=== PATIENT | female | born 1980 | race Caucasian/White ===

== ENCOUNTER 2017-06-30 06:31 | Day surgery (SDC) | payer BC ==
[2017-06-30] MEDS ORDERED: Lactated Ringers 1,000 ML IV SCH (06:45)
[2017-06-30] MEDS ORDERED: Propofol 200 MG/20 ML SDV IV ONE (08:00)
[2017-06-30] MEDS ORDERED: Ondansetron 4 MG/2 ML SDV IVPUSH ONE (08:00)
--- NOTE | 2017-06-30 08:28 | PCM.OPNOTE ---
- General Post-Op/Procedure Note Date of Surgery/Procedure: 06/30/17 Operative Procedure(s): c scope with random biopsies Findings: normal colon Pre Op Diagnosis: diarrhea crampy abd pain Post-Op Diagnosis: nl exam Anesthesia Technique: MAC Primary Surgeon: Nitin Ponce Anesthesia Provider: Tiera Carolina Pathology: random colon biopsy Complications: None Condition: Good Free Text/Narrative:: see dictation
--- NOTE | 2017-06-30 10:13 | OR ---
DATE OF OPERATION: 06/30/2017 SURGEON: Nitin Ponce MD PROCEDURE PERFORMED: Colonoscopy. PREOPERATIVE DIAGNOSIS: History of abdominal pain and cramping and diarrhea. POSTOPERATIVE DIAGNOSIS: Normal scope. INDICATIONS FOR PROCEDURE: This is a 36-year-old white female who is referred with the above-mentioned history of diarrhea and crampy abdominal pain. She was offered and accepted a colonoscopy. DESCRIPTION OF PROCEDURE: After an excellent IV sedation was administered, digital rectal exam was performed. No marked abnormality was noted. The flexible colonoscope was inserted and advanced to the cecum without difficulty. The prep was good. The following findings were noted: Ascending colon, unremarkable. Transverse colon, unremarkable. Descending colon, unremarkable. Sigmoid, unremarkable. Rectum and anus unremarkable. On withdrawing the scope, random biopsies were taken. The colon was deflated. The scope was removed. The patient tolerated the procedure well. /[id number] /MODL
[2017-06-30 10:26] VITALS: BP 127/77
== END 2017-06-30 09:35 | disposition home or self-care (01) ==
LOC: FB.SDS 06:31
PROVIDERS: ATTEND Surgery
DX: R10.9 Unspecified abdominal pain (principal); R19.7 Diarrhea, unspecified; F32.9 Major depressive disorder, single episode, unspecified; Z88.0 Allergy status to penicillin; Z88.8 Allergy status to other drugs, medicaments and biological substances; Z91.030 Bee allergy status; Z79.899 Other long term (current) drug therapy; Z98.890 Other specified postprocedural states; Z87.891 Personal history of nicotine dependence
CPT/HCPCS: 45380; 88305; J2405; J2704; J7120

== ENCOUNTER 2017-09-07 20:58 | Emergency (ER) | payer BC ==
[2017-09-07] MEDS ORDERED: hydrOXYzine HCl 25 MG Tab PO ONE (23:15)
--- NOTE | 2017-09-07 23:20 | EDM.PDOC ---
ED HPI GENERAL MEDICAL PROBLEM - General Chief Complaint: Cardiovascular Problem Stated Complaint: CHEST PAIN AND BLOOD PRESSURE Time Seen by Provider: 09/07/17 21:00 Source of Information: Reports: Patient History Limitations: Reports: No Limitations - History of Present Illness INITIAL COMMENTS - FREE TEXT/NARRATIVE: c/o multiple symptoms sensitivity of R jaw x 3w, h/o pins in her jaw 2y ago, pt thought they might be infected, saw PCP 1d ago and dx with sinusitis and begun on antibiotic, saw oral surgeon today who did a CT and told her that the pins were not infected and that her sinuses were clear, pt wants to stop the antibiotic has had soreness in her mid sternum for the past 5d that is continuous, no change with DB or movement also tingle and cold and dec'd sensation in L hand for past several days not sleeping well has been fatigued no flu vax 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, has 2 children of her own ages 13 and 7 no f/c/d, no n/v, no constipation/diarrhea w/u neg here Left Anterior Chest Pain Score (Numeric/FACES): 4 - Related Data Allergies Allergy/AdvReac Type Severity Reaction Status Date / Time Penicillins Allergy Intermediate Hives Verified 06/29/17 08:44 venom-honey bee Allergy Intermediate Anaphylactic Verified 06/29/17 08:44 [bee venom (honey bee)] Shock loratadine [From Claritin] Allergy Hives Verified 06/29/17 08:44 Home Meds: Home Meds Ketorolac [Toradol] 10 mg PO ASDIRECTED PRN 01/01/14 [History] EPINEPHrine [Epipen] 1 injection IM ASDIRECTED PRN 09/05/14 [History] Ibuprofen 600 mg PO Q6H PRN 06/29/17 [History] Zolpidem Tartrate [Ambien] 10 mg PO BEDTIME PRN 06/29/17 [History] Acetaminophen [Tylenol Extra Strength] 1,500 mg PO ASDIRECTED PRN 06/30/17 [ History] hydrOXYzine HCl [hydrOXYzine] 25 mg PO TID PRN #30 tab 09/07/17 [Rx] Past Medical History - Past Health History Medical/Surgical History: Denies Medical/Surgical History Other HEENT History: TMJ DISORDER, HAD JAW SURGERY 2016 Cardiovascular History: Reports: None, Other (See Below) Other Cardiovascular History: STATES FELT PERIODS OF PALPITATION ET WAS PUT ON MONITOR WHICH SHOWED BRADYCARDIA. NOT CURRENTLY ON MEDS, ETC. inwith tingling L hand and chest tightness Respiratory History: Reports: None Gastrointestinal History: Reports: GERD Genitourinary History: Reports: Other (See Below) Other Genitourinary History: STATES HAD ISSUE CHILD ET HAD SURGERY, HOWEVER STATES RECORDS WERE LOST. [employer] History: Reports: Other OB/BYN History: III PARA II AB I Other Musculoskeletal History: TMJ Neurological History: Reports: Migraines Other Neuro History: STATES FEW MIGRAINES SINCE SURGERY FOR TMJ Psychiatric History: Reports: Anxiety, Depression Endocrine/Metabolic History: Reports: None Hematologic History: Reports: Anemia Other Hematologic History: ANEMIA DURING Oncologic (Cancer) History: Reports: None Dermatologic History: Reports: None - Infectious Disease History Infectious Disease History: Reports: Chicken Pox, Influenza - Past Surgical History Head Surgeries/Procedures: Reports: None HEENT Surgical History: Reports: Oral Surgery, Other (See Below) Other HEENT Surgeries/Procedures: TMJ SURGERY. HAS PERMANENT RETAINER, LOWER TEETH. Cardiovascular Surgical History: Reports: None Respiratory Surgical History: Reports: None GI Surgical History: Reports: EGD Female Surgical History: Reports: Section Social & Family History - Family History Family Medical History: Noncontributory Immunologic: Reports: SLE, Other (See Below) Other Immunologic Family History: sister - Tobacco Use Smoking Status *Q: Never Smoker Years of Tobacco use: 12 Packs/Tins Daily: 0.5 Used Tobacco, but Quit: Yes Month Tobacco Last Used: 2011 Second Hand Smoke Exposure: No - Caffeine Use Caffeine Use: Reports: Coffee Caffeine Use Comment: 2-3 cups a day - Alcohol Use Days Per Week of Alcohol Use: 0 - Recreational Drug Use Recreational Drug Use: No ED ROS GENERAL - Review of Systems Review Of Systems: See Below Constitutional: Reports: No Symptoms HEENT: Reports: No Symptoms Respiratory: Reports: No Symptoms Cardiovascular: Reports: Chest Pain Endocrine: Reports: No Symptoms GI/Abdominal: Reports: No Symptoms : Reports: No Symptoms Musculoskeletal: Reports: No Symptoms Skin: Reports: No Symptoms Neurological: Reports: Headache, Weakness, Other (numbness of hand) Psychiatric: Reports: Anxiety, Other (sleep disturbance) Hematologic/Lymphatic: Reports: No Symptoms Immunologic: Reports: No Symptoms ED EXAM, GENERAL - Physical Exam Exam: See Below Exam Limited By: No Limitations General Appearance: Alert, WD/WN, Anxious Eye Exam: Bilateral Eye: Normal Inspection, PERRL Ears: Normal External Exam, Normal Canal, Hearing Grossly Normal Nose: Normal Inspection, Normal Mucosa, No Blood Throat/Mouth: Normal Inspection, Normal Lips, Normal Teeth, Normal Voice, No Airway Compromise, Other (nares 50% swell b/l) Head: Atraumatic, Normocephalic Neck: Normal Inspection, Supple, Non-Tender, Full Range of Motion Respiratory/Chest: No Respiratory Distress, Lungs Clear, Normal Breath Sounds, No Accessory Muscle Use, Chest Non-Tender Cardiovascular: Regular Rate, Rhythm, No Edema, No Gallop, No Murmur, No Rub GI/Abdominal: Normal Bowel Sounds, Soft, Non-Tender, No Organomegaly, No Distention, No Mass Back Exam: Normal Inspection, Full Range of Motion, NT Extremities: Normal Inspection, Normal Range of Motion, Non-Tender, No Pedal Edema Neurological: Alert, Oriented, CN II-XII Intact, Normal Cognition, No Motor/ Sensory Deficits Psychiatric: Anxious Skin Exam: Warm, Dry, Intact, Normal Color, No Rash Lymphatic: No Adenopathy Course - Vital Signs Last Recorded V/S: Last Vital Signs Temp 37.0 C 09/07/17 22:15 Pulse 81 09/07/17 22:15 Resp 16 09/07/17 22:15 BP 140/79 09/07/17 22:15 Pulse Ox 100 09/07/17 22:15 - Orders/Labs/Meds Orders: Active Orders 24 hr Category Date Time Status EKG Documentation Completion [RC] ASDIRECTED Care 09/07/17 21:09 Active EKG 12 Lead [EK] Routine Ther 09/07/17 21:08 Ordered Labs: Laboratory Tests 09/07/17 09/07/17 09/07/17 Range/Units 21:25 21:25 21:25 WBC 5.1 (4.5-12.0) X10-3/uL RBC 4.18 (3.23-5.20) x10(6)uL Hgb 13.3 (11.5-15.5) g/dL Hct 38.3 (30.0-51.3) % MCV 91.7 (80-96) fL MCH 31.9 (27.7-33.6) pg MCHC 34.8 (32.2-35.4) g/dL RDW 11.0 L (11.5-15.5) % Plt Count 281 (125-369) X10(3)uL MPV 9.8 (7.4-10.4) fL Neut % (Auto) 54.7 (46-82) % Lymph % (Auto) 33.9 (13-37) % [place] % (Auto) 7.4 (4-12) % Eos % (Auto) 1 (1.0-5.0) % Baso % (Auto) 3 H (0-2) % Neut # (Auto) 2.8 (1.6-8.3) # Lymph # (Auto) 1.7 (0.6-5.0) # [place] # (Auto) 0.4 (0.0-1.3) # Eos # (Auto) 0.1 (0.0-0.8) # Baso # (Auto) 0.1 (0.0-0.2) # Sodium 144 (135-145) mmol/L Potassium 4.0 (3.5-5.3) mmol/L Chloride 107 (100-110) mmol/L Carbon Dioxide 28 (21-32) mmol/L BUN 18 (7-18) mg/dL Creatinine 1.1 H (0.55-1.02) mg/dL Est Cr Clr Drug Dosing 66.82 mL/min Estimated GFR (MDRD) 57 L (>60) BUN/Creatinine Ratio 16.4 (9-20) Glucose 112 (80-116) mg/dL Calcium 8.6 (8.6-10.2) mg/dL Total Bilirubin 0.2 (0.1-1.3) mg/dL AST 20 (5-25) IU/L ALT 26 (12-36) U/L Alkaline Phosphatase 97 (56-112) IU/L Troponin I < 0.017 L (<0.017-0.056) ng/mL Total Protein 7.2 (6.0-8.0) g/dL Albumin 3.5 (3.5-5.2) g/dL Globulin 3.7 g/dL Albumin/Globulin Ratio 1.0 Meds: Medications Discontinued Medications Generic Name Dose Route Start Last Admin Trade Name Freq PRN Reason Stop Dose Admin Hydroxyzine HCl 25 mg 09/07/17 23:15 Atarax PO 09/07/17 23:16 ONETIME ONE Departure - Departure Time of Disposition: 23:25 Disposition: Home, Self-Care 01 Condition: Good Clinical Impression: Stress disorder, acute, Anxiety, Insomnia Prescriptions: hydrOXYzine HCl [hydrOXYzine] 25 mg PO TID PRN #30 tab PRN Reason: Anxiety Instructions: Insomnia, Panic Attacks Referrals: Sim Loyd MD [Primary Care Provider] - Forms: ED Department Discharge Additional Instructions: For stress and anxiety, take hydroxyzine 25 mg 1 tab 3 times a day as needed for 7-10 days. Maintain 3 meals daily. Maintain fluids without caffeine. Get adequate rest at night. May stop the antibiotic. See your doctor in the next 1-2 days for further recommendations. Call your Physician or Return to Emergency Department if: * Your condition worsens in any way. * You develop fever greater than 100.4. * You have vomitting that does not stop with medications. * You have pain that is not controlled with medications. - My Orders Last 24 Hours: My Active Orders 09/07/17 21:08 EKG 12 Lead [EK] Routine 09/07/17 21:09 EKG Documentation Completion [RC] ASDIRECTED - Assessment/Plan Last 24 Hours: My Active Orders 09/07/17 21:08 EKG 12 Lead [EK] Routine 09/07/17 21:09 EKG Documentation Completion [RC] ASDIRECTED
[2017-09-07 23:56] VITALS: BP 134/66
== END 2017-09-07 23:50 | disposition home or self-care (01) ==
LOC: FB.ED 20:58
DX: F43.0 Acute stress reaction (principal); F41.9 Anxiety disorder, unspecified; G47.00 Insomnia, unspecified; F32.9 Major depressive disorder, single episode, unspecified; Z87.891 Personal history of nicotine dependence; Z88.0 Allergy status to penicillin; Z88.8 Allergy status to other drugs, medicaments and biological substances; Z91.030 Bee allergy status
CPT/HCPCS: 36415; 80053; 84484; 85025; 93005; 99284; A9270